=== PATIENT | male | born 1960 | race Caucasian/White ===

== ENCOUNTER → 2017-12-12 | Outpatient (CLI) | payer MEDICARE, OTHER ==
--- NOTE | 2017-12-12 08:22 | MR ---
EXAMINATION TYPE: MR cspine/lspine wo con DATE OF EXAM ORDERED: 12/12/2017 7:57 AM HISTORY: M47.27 Spondylosis with radiculopathy, lumbosacral. TECHNOLOGIST HISTORY AT TIME OF EXAM: Neck pain, headaches, BUE weakness, LBP COMPARISON: TECHNIQUE: Multiplanar, multiecho imaging of the cervical spine was obtained without contrast on a 1 .5 gaston magnet. FINDINGS: CERVICAL SPINE: Prevertebral soft tissues are normal. There is a mild reversal of the normal cervical lordosis. There is a minimal retrograde listhesis of C5 on C6. Alignment is otherwise maintained. Atlantoaxial relationships are normal. There is a normal craniocervical junction. Cord signal is normal. At C2-C3, no definite abnormality is seen. At C3-C4, there is mild facet arthropathy. At C4-C5, there is disc space loss. This hypertrophic spondylosis both anteriorly and posteriorly. Th ere is a right paracentral disc protrusion deforming the thecal sac with cord contact and mild compre ssion. There is right-sided intervertebral foraminal narrowing. There is mild facet and uncovertebral joint disease. At C5-C6, there is severe disc space loss and hypertrophic spondylosis both anteriorly and posteriorl y. There is a broad-based disc protrusion slightly eccentric towards the right deforming the thecal s ac with cord contact and mild compression. There is bilateral intervertebral foraminal narrowing. The re is mild to moderate facet and uncovertebral joint disease. At C6-C7, there is disc space loss. There is a diffuse disc displacement. There is bilateral interver tebral foraminal narrowing. There is moderate uncovertebral joint disease. There is mild facet arthro asad. At C7-T1, there is mild disc space loss. There is no significant compressive discopathy. Intervertebr al foramina are well maintained. LUMBAR SPINE: There are extrarenal pelves bilaterally. Paraspinal soft tissues are otherwise unremarkable. There is a moderate dextroscoliosis. Vertebral body height and alignment are maintained. There is no evidence of spondylolysis or spondylolisthesis. Cord signal is maintained. The conus ends normally at the level of the mid body of L1. T12-L1, there is mild, bilateral intervertebral foraminal narrowing. There is a bilobed disc displace ment. There is mild facet arthropathy. At L1-2, there is disc space loss and disc desiccation. There is a broad-based disc protrusion. There is left-sided intervertebral foraminal narrowing. There is mild to moderate central canal stenosis. There is moderate facet arthropathy. At L2-3, there is severe disc space loss. There is hypertrophic spondylosis anteriorly. There is bila teral intervertebral foraminal narrowing, worse on the left than the right. There is moderate facet a rthropathy. This is causing some lateral impression upon the thecal sac on the left. There is no sign ificant compressive discopathy. At L3-4, there is disc space loss. There is bilateral intervertebral foraminal narrowing. There is se jose facet arthropathy. There is moderate to severe central canal stenosis. At L4-5, there is disc space loss. Intervertebral foramina are reasonably well-maintained. There is n o significant compressive discopathy. There is moderate to severe facet arthropathy. At L5-S1, there is facet arthropathy. There is bilateral intervertebral foraminal narrowing. There is a diffuse disc displacement. IMPRESSION: 1. SIGNIFICANT DEGENERATIVE DISC DISEASE IN BOTH THE CERVICAL AND LUMBAR SPINES. 2. RIGHT PARACENTRAL DISC PROTRUSION, C4-5 WITH MILD CORD COMPRESSION. 3. BROAD-BASED DISC PROTRUSION, C5-6 WITH CORD CONTACT AND COMPRESSION. 4. DIFFUSE FACET AND UNCOVERTEBRAL JOINT DISEASE. 5. MODERATE DEXTROSCOLIOSIS. 6. MULTILEVEL INTERVERTEBRAL FORAMINAL NARROWING. 7. DIFFUSE FACET ARTHROPATHY. 8. VARYING DEGREES OF CENTRAL CANAL COMPROMISE, MOST MARKED AT L3-4.
--- NOTE | 2017-12-12 19:27 | XR ---
EXAMINATION TYPE: XR lumbar spine with bend/flex DATE OF EXAM: 12/12/2017 CLINICAL HISTORY: Back pain TECHNIQUE: Frontal, lateral neutral, lateral extension, and lateral flexion images of the lumbar spin e are obtained. COMPARISON: MRI lumbar spine dated 12/12/2017 FINDINGS: There are 5 lumbar type vertebral bodies identified. Lumbar spine vertebral bodies maintain normal vertebral body height and alignment. There is scoliosis of the lumbar spine, dextroconvex, with extensive multilevel degenerative disc disease. There is fac et arthropathy, intervertebral disc space narrowing, endplate sclerosis and anterior osteophytes. No malalignment in neutral or flexion, however on extension there is mild protuberance of a posterior di sc osteophyte complex at L3-L4 into the spinal canal. IMPRESSION: 1. Extensive multilevel degenerative change of the lumbar spine with dextroscoliotic curvature. 2. Protrusion of a posterior disc osteophyte complex at L3-L4 into the spinal canal on extension only .
--- NOTE | 2017-12-12 20:17 | XR ---
EXAMINATION TYPE: XR cervical spine w flex/ext DATE OF EXAM: 12/12/2017 TECHNIQUE: Frontal, lateral neutral, lateral extension, lateral flexion, and open mouth view of the c ervical spine are obtained. HISTORY: M47.27 Spondylosis with radiculopathy, lumbosacral/cervical COMPARISON: None FINDINGS: There is a minimal retrolisthesis of C5 on C6. This is unchanged in both flexion and extens ion. There is loss of the usual cervical lordosis. Multilevel moderate degenerative changes are seen as uncovertebral hypertrophy, facet arthropathy, anterior aspect, intervertebral disc space narrowing and endplate sclerosis. No acute fracture of the cervical spine is seen. The pre-vertebral soft tis mary appears within normal limits. The C1-C2 articulation is within normal limits on the open mouth v iew. Lung apices are well aerated. IMPRESSION: 1. No acute fracture is seen in the cervical spine. 2. Minimal retrolisthesis of C5 on C6 unchanged in flexion and extension. 3. Moderate multilevel degenerative disc disease with degree of neural foraminal narrowing and spinal canal stenosis evaluated on the MR cervical spine of the same date.
--- NOTE | 2017-12-12 20:50 | XR ---
EXAMINATION TYPE: XR scoliosis survey DATE OF EXAM: 12/12/2017 COMPARISON: NONE HISTORY: Spondylosis and back pain TECHNIQUE: Frontal and lateral views of the thoracolumbar spine were obtained. FINDINGS: There is an S-shaped minimally rotatory scoliotic curvature of the thoracolumbar spine, lev oconvex of the thoracolumbar junction and dextroconvex of the lumbar spine. Reyez angle of the dextros coliotic curvature of the lumbar spine is 23 degrees and, angle of the levoscoliotic curvature of the thoracolumbar junction is 19 degrees. There are extensive multilevel degenerative changes of the tho racolumbar spine with multilevel endplate sclerosis, intervertebral disc space no hemivertebrae are s een. No gross evidence of paraspinal mass. Narrowing, anterior osteophyte and facet arthropathy. Visu alized bowel is nondilated. Visualized lungs are clear. IMPRESSION: Extensive degenerative changes of the thoracic lumbar spine with S-shaped scoliotic curva ture that is minimally rotatory as described above.
== END | disposition home or self-care (01) ==
LOC: RADMRIMAIN 07:03
PROVIDERS: ATTEND Neurological Surgery
DX: M99.73 Connective tissue and disc stenosis of intervertebral foramina of lumbar region (principal); M51.16 Intervertebral disc disorders with radiculopathy, lumbar region; M47.25 Other spondylosis with radiculopathy, thoracolumbar region; M43.8X5 Other specified deforming dorsopathies, thoracolumbar region; M53.86 Other specified dorsopathies, lumbar region; M48.02 Spinal stenosis, cervical region; M99.71 Connective tissue and disc stenosis of intervertebral foramina of cervical region; M50.221 Other cervical disc displacement at C4-C5 level; M50.30 Other cervical disc degeneration, unspecified cervical region; M43.12 Spondylolisthesis, cervical region; M41.82 Other forms of scoliosis, cervical region
CPT/HCPCS: 72052; 72082; 72114; 72141; 72148